=== PATIENT | female | born 1965 | race Caucasian/White ===

== ENCOUNTER 2017-01-14 03:33 | Emergency (ER) | payer OTHER ==
[~2017-01-14] VITALS: Ht 162.6 cm; Wt 96.3 kg
[2017-01-14 03:39] VITALS: BP 138/87
[2017-01-14 04:48] LABS: BASO # 0.1 10^3/uL (0.0-0.2); BASO % 0.5 % (0.0-1.0); EOS % 0.3 % (0.0-3.0); IMMATURE GRANULOCYTE % 0.5 % (0-0); LYMPH # 1.1 10^3/uL (1.5-4.5); LYMPH % 10.6 % (24.0-44.0); MEAN CORPUSCULAR HEMOGLOBIN 32.1 pg (27.0-33.0); MEAN CORPUSCULAR HGB CONC 35.7 g/dl (32.0-36.5); MONO # 0.4 10^3/uL (0.0-0.8); MONO % 4.1 % (0.0-5.0); PLATELET COUNT, AUTOMATED 290 10^3/uL (150-450); RED CELL DISTRIBUTION WIDTH 12.9 % (11.5-14.5); WHITE BLOOD COUNT 10.7 10^3/uL (4.0-10.0)
[2017-01-14 05:11] LABS: ALBUMIN 3.4 GM/DL (3.2-5.2); ALBUMIN/GLOBULIN RATIO 1.13 (1.00-1.93); ALKALINE PHOSPHATASE 118 U/L (45-117); ALT/SGPT 21 U/L (12-78); ANION GAP 5 MEQ/L (8-16); AST/SGOT 13 U/L (7-37); BILIRUBIN,DIRECT < 0.1 MG/DL (0.0-0.2); BILIRUBIN,TOTAL 0.3 MG/DL (0.2-1.0); BLOOD UREA NITROGEN 13 MG/DL (7-18); CALCIUM LEVEL 8.9 MG/DL (8.5-10.1); CARBON DIOXIDE LEVEL 28 MEQ/L (21-32); CHLORIDE LEVEL 110 MEQ/L (98-107); CREATININE FOR GFR 1.22 MG/DL (0.55-1.02); GLOMERULAR FILTRATION RATE 49.1 (>51); GLUCOSE, FASTING 103 MG/DL (70-105); POTASSIUM SERUM 4.6 MEQ/L (3.5-5.1); SODIUM LEVEL 143 MEQ/L (136-145); TOTAL PROTEIN 6.4 GM/DL (6.4-8.2)
[2017-01-14] MEDS ORDERED: ISOVUE-370 76% 100ML VIAL (Q9967) As Ordered ONE (05:24)
[2017-01-14] MEDS ORDERED: MORPHINE 2 MG/ML 1ML SYRINGE IV PRN (06:00)
[2017-01-14] MEDS ORDERED: ONDANSETRON 4MG/2ML VIAL (J2405) IV ONE (06:00)
[2017-01-14] MEDS ORDERED: DICYCLOMINE 10 MG CAP PO ONE (06:45)
--- NOTE | 2017-01-14 08:52 | REPUSA ---
CLINICAL HISTORY: Abdominal pain. TECHNIQUE: Multiple axial, sagittal and coronal CT images were obtained through the abdomen and pelvi s after administration of intravenous contrast material. COMMENTS: The liver is mildly enlarged with decreased attenuation without mass or defect. There is no intra or extrahepatic biliary ductal dilatation. The spleen is normal. The gallbladder is within normal limits . The pancreas is of normal contour and attenuation characteristics. There is no evidence of adrenal mass. Both kidneys demonstrate prompt and equal nephrograms. The kidneys are normal in size, shape and conf iguration. There is no evidence of renal or ureteral mass. No renal or ureteral calculi are identifie d. There is no hydroureter or hydronephrosis. No evidence for appendicitis. There is diffuse sigmoid and descending colon wall thickening. Diffuse thickening of the small bowel loops in the left upper quadrant No evidence for small or large bowel obstruction. There is no evidence of abdominal ascites or lymphadenopathy. There is no evidence of intrinsic or extrinsic bladder mass. Thickened bladder. There is no pelvic as cites or lymphadenopathy. 2.2 cm left ovarian cyst/follicle. Intrauterine device is seen. Images of the lung bases show no evidence of pleural or parenchymal mass. There are no pleural effusi ons. The bony structures are free of lytic or blastic lesions. Multilevel degenerative changes are seen in volving the thoracolumbar spine. Scattered calcifications are seen involving the aorta and major bran ches compatible with atherosclerosis. IMPRESSION: Enterocolitis. Cystitis. Left ovarian cyst/follicle. Intrauterine device is seen in good position. Thank you for your kind referral of this patient.
--- NOTE | 2017-01-14 12:44 | ECGEPIP ---
Stationary ECG Study [facility] - ED Test Date: 2017-01-14 Pat Name: TRANG BHATT Department: Room: - Gender: F Kitchen Stewardess: julius : 1965 Requested By: JUSTIN Irby Order Number: [id number] Reading MD: Linda Tello Measurements Intervals [place] Rate: 68 P: 29 SC: 189 QRS: -6 QRSD: 87 T: 3 QT: 427 QTc: 455 Interpretive Statements SINUS RHYTHM LOW QRS VOLTAGE IN PRECORDIAL LEADS POSSIBLE RIGHT VENTRICULAR CONDUCTION DELAY POSSIBLE INFERIOR MYOCARDIAL INFARCTION, PROBABLY OLD DECREASED RATE 12/27/15 Electronically Signed On 01-14-2017 12:44:14 EST by Linda Tello
== END 2017-01-14 06:59 | disposition home or self-care (01) ==
LOC: M ED 03:33 → EDBD 03:33 → M ED 06:59
DX: R10.30 Lower abdominal pain, unspecified (principal); N83.202 Unspecified ovarian cyst, left side; K21.9 Gastro-esophageal reflux disease without esophagitis; Z97.5 Presence of (intrauterine) contraceptive device
CPT/HCPCS: 74177; 80048; 80076; 81001; 82550; 82553; 83605; 83690; 85025; 87086; 93005; 93041; 96374; 96375; 99284; J2405; Q9967

== ENCOUNTER → 2017-07-16 | Outpatient (CLI) | payer OTHER | LOC: M WUC 13:36 | DX: S40.012A Contusion of left shoulder, initial encounter (principal); S60.212A Contusion of left wrist, initial encounter; X58.XXXA Exposure to other specified factors, initial encounter; Y92.89 Other specified places as the place of occurrence of the external cause; Y99.9 Unspecified external cause status; Y93.9 Activity, unspecified | CPT/HCPCS: 73030 ==

== ENCOUNTER 2019-08-02 14:45 | Observation (INO) | payer OTHER ==
[~2019-08-02] VITALS: Ht 162.6 cm; Wt 106.6 kg
[2019-08-02 15:12] LABS: BASO # 0.1 10^3/uL (0.0-0.2); BASO % 0.6 % (0.0-1.0); EOS # 0.2 10^3/uL (0.0-0.5); EOS % 1.5 % (0.0-3.0); HEMATOCRIT 39.7 % (36.0-47.0); HEMOGLOBIN 14.5 g/dl (12.0-15.5); LYMPH # 2.4 10^3/uL (1.5-5.0); LYMPH % 21.6 % (24.0-44.0); MEAN CORPUSCULAR HEMOGLOBIN 32.6 pg (27.0-33.0); MEAN CORPUSCULAR HGB CONC 36.5 g/dl (32.0-36.5); MEAN CORPUSCULAR VOLUME 89.2 fl (80.0-96.0); MONO # 0.7 10^3/uL (0.0-0.8); MONO % 6.5 % (0.0-5.0); NEUTROPHILS # 7.8 10^3/uL (1.5-8.5); NEUTROPHILS % 69.5 % (36.0-66.0); PLATELET COUNT, AUTOMATED 335 10^3/uL (150-450); RED BLOOD COUNT 4.45 10^6/uL (4.00-5.40); WHITE BLOOD COUNT 11.2 10^3/uL (4.0-10.0)
[2019-08-02] MEDS ORDERED: ASPIRIN 325 MG TAB PO ONE (15:15)
[2019-08-02] MEDS ORDERED: GI COCKTAIL 50ML BTL(HYOSCYAMINE/MAALOX/LIDOCAINE VISCOUS)(1:3:1) PO ONE (15:15)
[2019-08-02] MEDS ORDERED: ALBU8.5H INH (15:17)
[2019-08-02] MEDS ORDERED: TRAZ1TAB14 PO (15:17)
[2019-08-02] MEDS ORDERED: BUSP30TA PO (15:17)
[2019-08-02] MEDS ORDERED: ORPH100T PO (15:17)
[2019-08-02] MEDS ORDERED: FAMO40TA3 PO ×2 (15:17→19:37)
[2019-08-02] MEDS ORDERED: OMEP-221 PO (15:17)
[2019-08-02] MEDS ORDERED: MONT10TA4 PO (15:17)
[2019-08-02] MEDS ORDERED: TOPI100T9 PO (15:17)
[2019-08-02] MEDS ORDERED: DULO1CAP6 PO (15:17)
[2019-08-02] MEDS ORDERED: NAPR-885 PO (15:17)
[2019-08-02] MEDS ORDERED: LISI20TA20 PO (15:17)
[2019-08-02 15:26] LABS: INR 0.98; PROTHROMBIN TIME 12.7 SECONDS (11.8-14.0)
[2019-08-02 15:29] LABS: D-DIMER QUANT 1019.7 ng/ml (<500)
--- NOTE | 2019-08-02 15:46 | REP ---
CHEST, SINGLE VIEW: There is no evidence of acute infiltrate. No pleural effusion is seen. The heart is normal in size. The mediastinal silhouette is unremarkable. The visualized osseous structures are intact. IMPRESSION: No acute pulmonary disease. Electronically Signed by Pedro Mars MD 08/02/2019 05:06 P
[2019-08-02 15:51] LABS: ALBUMIN 4.3 GM/DL (3.2-5.2); ALT/SGPT 24 U/L (12-78); BILIRUBIN,DIRECT 0.1 MG/DL (0.0-0.2); BILIRUBIN,TOTAL 0.6 MG/DL (0.2-1.0); CPK CREATINE PHOSPHOKINASE 162 U/L (26-192); LIPASE 510 U/L (73-393); MB/CK RELATIVE INDEX 1.23 (< OR =4); TOTAL PROTEIN 7.4 GM/DL (6.4-8.2); TROPONIN I < 0.02 NG/ML (< 0.10)
[2019-08-02 16:12] LABS: BLOOD UREA NITROGEN 36 MG/DL (7-18); CALCIUM LEVEL 9.3 MG/DL (8.5-10.1); CARBON DIOXIDE LEVEL 26 MEQ/L (21-32); CHLORIDE LEVEL 105 MEQ/L (98-107); CREATININE FOR GFR 1.79 MG/DL (0.55-1.30); GLOMERULAR FILTRATION RATE 31.2 (>51); GLUCOSE, FASTING 85 MG/DL (70-100); POTASSIUM SERUM 3.7 MEQ/L (3.5-5.1); SODIUM LEVEL 138 MEQ/L (136-145)
--- NOTE | 2019-08-02 17:32 | REP ---
CT CHEST WITHOUT CONTRAST: HISTORY: Chest pain. Comparison chest CT study is from February 18, 2009. CT FINDINGS: The lung gaytan are clear. No infiltrate is seen. No mass or significant pulmonary nodule is appreciated. There is a zone of minimal linear fibrosis in the left lower lobe. This is unchanged actually from the 2009 prior study. There is no evidence of pleural or pericardial effusion. No hilar or mediastinal mass or adenopathy is observed. No adrenal lesion is seen. The visualized upper abdominal structures are unremarkable. No extrathoracic mass or adenopathy is seen. Bone window settings show no bony destructive lesion. IMPRESSION: No active cardiopulmonary disease. Electronically Signed by Mike Sargent MD 08/03/2019 09:11 A
--- NOTE | 2019-08-02 17:37 | REP ---
CT ABDOMEN AND PELVIS WITHOUT IV OR ORAL CONTRAST: HISTORY: Chest pain. Comparison CT study, January 14, 2017. CT FINDINGS: The liver and the spleen are normal in size, homogeneous in texture. No adrenal lesion is seen on either side. No abnormalities noted in the gallbladder or pancreas. There is a descending duodenal diverticulum. There is a granulomatous calcification in the omental fat in the right anterior abdomen, unchanged. No retroperitoneal mass or adenopathy is seen. The kidneys are morphologically intact. No hydronephrosis or intrarenal calculus is observed. No retroperitoneal mass or adenopathy is seen. A normal appendix is noted in the right lower quadrant. An IUD is seen in place in the uterus. No ovarian abnormality is seen. No free fluid is noted. Urinary bladder is unremarkable. No abdominal wall defect is seen. There are mild degenerative changes in the lumbar spine. No bony destructive lesion is seen. IMPRESSION: Normal appendix. IUD seen in place in the uterus. No acute abdominal or pelvic abnormality. No hydronephrosis or urinary tract calculus seen. Electronically Signed by Mike Sargent MD 08/03/2019 09:11 A
[2019-08-02] MEDS ORDERED: NS 1,000 ML IV ONE (18:00)
--- NOTE | 2019-08-02 18:43 | REPVR ---
PROCEDURE INFORMATION: Exam: US Duplex Lower Extremity Veins, Bilateral Exam date and time: 08/02/2019 6:39 PM Age: 54 years old Clinical indication: Other: Chest pain; Additional info: R/O dvt TECHNIQUE: Imaging protocol: Real-time duplex ultrasound of the extremities with 2-D donohue scale, color Doppler flow and spectral waveform analysis with image documentation. Complete exam focused on the bilateral lower extremity veins. COMPARISON: No relevant prior studies available. FINDINGS: Right deep veins: Unremarkable. The common femoral, femoral, proximal profunda femoral and popliteal veins are patent without thrombus. Normal Doppler waveforms. Normal compressibility and/or augmentation response. Right superficial veins: Saphenofemoral junction is patent without thrombus. Left deep veins: Unremarkable. The common femoral, femoral, proximal profunda femoral and popliteal veins are patent without thrombus. Normal Doppler waveforms. Normal compressibility and/or augmentation response. Left superficial veins: Saphenofemoral junction is patent without thrombus. Soft tissues: Unremarkable. IMPRESSION: No evidence of deep vein thrombosis. Electronically signed by: Stephen Luna On 08/02/2019 18:43:34 PM
[2019-08-02] MEDS ORDERED: HEPARIN DRIP 25,000 UNITS in IV 1 EA IV SCH ×2 (19:09→19:58)
[2019-08-02 19:29] LABS: PARTIAL THROMBOPLASTIN TIME 32.7 SECONDS (25.0-38.4)
[2019-08-02] MEDS ORDERED: ACETAMINOPHEN TAB 650MG DOSE (2X325MG) PO PRN (20:00)
[2019-08-02] MEDS ORDERED: HEPARIN SOD (PORCINE) 5000UNITS/ML VIAL (J1644 PER 1000UNITS) IV PRN (20:00)
[2019-08-02] MEDS ORDERED: MAALOX 30 ML SUSP *UDC PO PRN (20:00)
[2019-08-02] MEDS ORDERED: MOM 30ML SUSPENSION UDC PO PRN (20:00)
[2019-08-02] MEDS ORDERED: NITROGLYCERIN 0.3 MG SUBL TAB SL PRN (20:15)
[2019-08-02] MEDS ORDERED: ALBUTEROL 90 MCG/ACT 8GM HFA INHALER INH PRN (20:30)
[2019-08-02] MEDS ORDERED: NON-FORMULARY 1 EA EA PO SCH (20:30)
[2019-08-02] MEDS ORDERED: FAMOTIDINE 20 MG TAB PO PRN (20:30)
--- NOTE | 2019-08-02 20:36 | HPEPDOC ---
General Date of Admission August 02, 2019 at 14:46 Date of Service: August 02, 2019 Chief Complaint The patient is a 54-year-old female admitted with a reason for visit of Chest Pain D Dimer Elevated. Source: Patient Exam Limitations: No limitations Timing/Duration: Other (one hour) Severity: Moderate Associated Symptoms: Other (chest pain) History of Present Illness This is a 54 years old white female with past medical history of migraine headache, hypertension, cervical strain, osteoarthritis, while at [place] with orthopedic doctor where he gave her a gentle sharp in her both legs, while driving back to [place]. She had sudden onset of midsternal squeezing type chest pain associated with nausea not improve with any position change, not exacerbated by ambulation, nonradiating, the remainder for about one hour and this spontaneously resolved. , During interview. Patient is asymptomatic. No chest pain, nausea or shortness of breath, patient had extensive workup done in the emergency room including CT chest, venous Dopplers of both lower extremities and chest x-ray, which are essentially negative but unfortunately she also had a d-dimer performed, which was elevated to 1019 and a as patient had a multiple CAT scan done, they were unable to perform CTA of chest and hence patient has to wait for VQ scan in the morning. Patient has been started on heparin from the emergency room and we will called to admit patient to observation for chest pain, as well as to obtained VQ scan in a.m. Home Medications Scheduled Buspirone HCl (Buspirone HCl) 30 Mg Tablet, 30 MG PO BID, (Reported) Duloxetine Hcl (Duloxetine HCl) 60 Mg Capsule.dr, 60 MG PO DAILY, (Reported) Famotidine (Famotidine) 40 Mg Tablet, 40 MG PO QHS, (Reported) Lisinopril/Hydrochlorothiazide (Lisinopril-Hctz 20-25 mg Tab) 1 Each Tablet, 1 TAB PO DAILY, (Reported) Montelukast Sodium (Montelukast Sodium) 10 Mg Tablet, 10 MG PO QHS, (Reported) Naproxen (Naproxen) 500 Mg Tablet, 500 MG PO BID, (Reported) Omeprazole (Omeprazole) 40 Mg Capsule.dr, 40 MG PO DAILY, (Reported) Orphenadrine Citrate (Orphenadrine Citrate ER) 100 Mg Tablet.er, 100 MG PO QHS, (Reported) Topiramate (Topiramate) 100 Mg Tablet, 100 MG PO BID, (Reported) Trazodone HCl (Trazodone HCl) 150 Mg Tablet, 150 MG PO QHS, (Reported) Scheduled PRN Albuterol Sulfate (Albuterol Sulfate Hfa) 8.5 Gm Hfa.aer.ad, 2 PUFF INH QID PRN for SHORTNESS OF BREATH, (Reported) Famotidine (Famotidine) 40 Mg Tablet, 40 MG PO DAILY PRN for HEARTBURN, (Reported) Allergies Coded Allergies: No Known Allergies (Unverified , 08/02/19) Past Medical History Medical History Migraine headaches, hypertension, cervical strain, osteoarthritis both knees Surgical History Patient and colonoscopy, endoscopy and multiple gel shots in both knees Family History Family history reviewed. Father at age of 68 with cancer of unknown origin and mother at age of 67 with lung cancer Social History * Smoker: Denies Alcohol: Denies Drugs: denies A-FIB/CHADSVASC A-FIB History Current/History of A-Fib/PAF?: No Review of Systems Constitutional: Denies: Chills, Fever, Malaise, Night Sweats, Weakness, Fatigue, Weight Loss, Lethargy, Other Eyes: Denies: Pain, Vision change, Conjunctivae inflammation, Eyelid inflammation, Redness, Other ENT: Denies: Head Aches, Ear Pain, Dysphagia, Sinus Congestion, Post Nasal Drip, Sore Throat, Epistaxis, Other Symptoms Skin: Denies: Rash, Lesions, Jaundice, Bruising, Itching, Dry, Breakdown, Nail Changes, Other Cardiovascular: Reports: Chest Pain Gastrointestinal: Reports: Nausea Genitourinary: Denies: Dysuria, Frequency, Incontinence, Hematuria, Retention, Other Symptoms Endocrine: Denies: Polydipsia, Polyphagia, Polyuria, Heat Intolerance, Cold Intolerance, Other Endocrine Sx Musculoskeletal: Denies: Neck Pain, Back Pain, Shoulder Pain, Arm Pain, Hand Pain, Leg Pain, Foot Pain, Joint Pain, Muscle Pain, Spasms, Other Symptoms Neurological: Denies: Weakness, Numbness, Incoordination, Change in speech, Confusion, Seizures, Other Symptoms Psych: Denies: Mood Normal, Anxiety, Depression, Memory Issues, Thoughts of Self Harm, Anger, Thoughts of Harming Other, Other Psych Physical Examination General Exam: Positive: Alert, Cooperative Eye Exam: Positive: PERRLA, Conjunctiva & lids normal ENT Exam: Positive: Atraumatic, Mucous membr. moist/pink Neck Exam: Positive: Supple Chest Exam: Positive: Clear to auscultation, Normal air movement Heart Exam: Positive: Rate Normal, Normal S1, Normal S2 Abdomen Exam: Positive: Normal bowel sounds Extremity Exam: Positive: Normal pulses Skin Exam: Positive: Nl turgor and temperature Neuro Exam: Positive: Strength at 5/5 X4 ext, Cranial Nerves 3-12 NL Psych Exam: Positive: Mood NL, Oriented x 3 Vital Signs Vital Signs Date Time Temp Pulse Resp B/P (MAP) Pulse Ox O2 Delivery O2 Flow Rate FiO2 08/02/19 18:30 80 18 96 Room Air 08/02/19 16:15 118/74 (89) 08/02/19 14:46 98.0 Laboratory Data Labs 24H Laboratory Tests 2 08/02/19 15:01: Immature Granulocyte % (Auto) 0.3, Neutrophils (%) (Auto) 69.5H, Lymphocytes (%) (Auto) 21.6L, Monocytes (%) (Auto) 6.5H, Eosinophils (%) (Auto) 1.5, Basophils (%) (Auto) 0.6, Neutrophils # (Auto) 7.8, Lymphocytes # (Auto) 2.4, Monocytes # (Auto) 0.7, Eosinophils # (Auto) 0.2, Basophils # (Auto) 0.1, Nucleated Red Blood Cells % (auto) 0.0, Prothrombin Time 12.7, Prothromb Time International Ratio 0.98, Activated Partial Thromboplast Time 32.7, D-Dimer, Quantitative 1019.70H, Anion Gap 7L, Glomerular Filtration Rate 31.2L, Calcium Level 9.3, Total Bilirubin 0.6, Direct Bilirubin 0.1, Aspartate Amino Transf (AST/SGOT) 22, Alanine Aminotransferase (ALT/SGPT) 24, Alkaline Phosphatase 100, Total Creatine Kinase 162, Creatine Kinase MB 2.0, Creatine Kinase MB Relative Index 1.23, Troponin I < 0.02, Total Protein 7.4, Albumin 4.3, Albumin/Globulin Ratio 1.4, Lipase 510H 08/02/19 15:06: POC Glucose (Misc Panel) 88, POC Sodium (Misc Panel) 140, POC Potassium (Misc Panel) 3.8, POC Chloride (Misc Panel) 103, POC Total CO2 (Misc Panel) 24.0, POC Blood Urea Nitrogen (Misc Panel 34H, POC Ionized Calcium (Misc Panel) 4.9, POC Creatinine (Misc Panel) 1.9H, POC Hematocrit (Misc Panel) 41.0 CBC/BMP Laboratory Tests 08/02/19 15:01 Problems (1) Chest pain Status: Acute Problem Text: 54 years old white female with past medical history of hypertension but no history of cardiac disease, gallops sudden onset of chest pain today. Pain was a midsternal, nonradiating squeezing type lasted for 1 hour with no other contributing factor except association with nausea EKG shows normal sinus rhythm, st-t changes Venous Doppler bilateral lower extremity, no DVT CT of the abdomen and place shows IUD in place, otherwise normal CT of the chest shows no pulmonary pathology Chest x-ray is within normal range First troponin is less than 0.02 D-dimer is 1019 Lipase is 510 CBC, CMP within normal range with creatinine of 1.79 Admit patient to PCU with telemetry Continue heparin infusion as was started for elevated d-dimer is unable to ob tained. CTA of chest Serial troponins to rule out coronary injury or ischemia Echocardiogram Out of bed as tolerated Diet 2 g sodium DVT prophylaxis, patient is already on heparin drip (2) D-dimer, elevated Status: Acute Problem Text: Elevated d-dimer [id number] Patient has no indication for pulmonary embolism. If she does not have a tachycardia, tachypnea, hypoxia Elevated d-dimer, most likely secondary to chronic inflammation secondary to osteoarthritis Since patient has a multiple CT done today as has the CTA of the chest could not be done to avoid risking kidneys with multiple contrast mediums Patient is scheduled for VQ scan in a.m. Patient was started on heparin drip in ED and will continue the same and it can be DC'd once the VQ scan is low probability (3) HTN (hypertension) Status: Chronic Problem Text: Continue home meds Plan / VTE VTE Prophylaxis Ordered?: Yes MIMI PINEDA MD August 02, 2019 20:36
[2019-08-02] MEDS ORDERED: FAMOTIDINE 20 MG TAB PO SCH (21:00)
[2019-08-02] MEDS ORDERED: traZODone 50 MG TAB PO SCH (21:00)
[2019-08-02] MEDS ORDERED: MONTELUKAST 10 MG TAB PO SCH (21:00)
--- NOTE | 2019-08-02 21:11 | ECGEPIP ---
[facility] - ED Test Date: 2019-08-02 Pat Name: TRANG BHATT Department: Room: - Gender: Female Business Instructor: : 1965 Requested By: MARGARETH David Order Number: [id number] Reading MD: Baldo Ortega Measurements Intervals [place] Rate: 85 P: 36 TN: 175 QRS: -6 QRSD: 90 T: -9 QT: 382 QTc: 455 Interpretive Statements SINUS RHYTHM POSSIBLE RIGHT VENTRICULAR CONDUCTION DELAY POSSIBLE PRIOR INFERIOR INFARCT NONSPECIFIC T-WAVE ABNORMALITY SIMILAR TO 01/14/17 Electronically Signed on 08-02-2019 21:11:15 EDT by Baldo Ortega
--- NOTE | 2019-08-02 21:18 | ECGEPIP ---
[facility] - ED Test Date: 2019-08-02 Pat Name: TRANG BHATT Department: Room: - Gender: Female Staff Services Manager: : 1965 Requested By: BRANDI OSCAR Order Number: [id number] Reading MD: Baldo Ortega Measurements Intervals [place] Rate: 71 P: 147 MD: 199 QRS: -19 QRSD: 86 T: -28 QT: 406 QTc: 442 Interpretive Statements SINUS RHYTHM LOW QRS VOLTAGE IN PRECORDIAL LEADS INCOMPLETE RIGHT BUNDLE BRANCH BLOCK POSSIBLE PRIOR INFERIOR INFARCT NONSPECIFIC T-WAVE ABNORMALITY SIMILAR TO PRIOR ON SAME DATE Electronically Signed on 08-02-2019 21:18:23 EDT by Baldo Ortega
[2019-08-02 21:56] LABS: CK-MB VALUE MASS 1.4 NG/ML (<3.6); CPK CREATINE PHOSPHOKINASE 122 U/L (26-192); MB/CK RELATIVE INDEX 1.15 (< OR =4); TROPONIN I < 0.02 NG/ML (< 0.10)
[2019-08-02 22:45] VITALS: BP 116/64
[2019-08-02] MEDS: busPIRone 10 MG TAB PO SCH (22:49)
[2019-08-02] MEDS: TOPIRAMATE (TopAMAX) 100 MG TAB PO SCH (22:49)
[2019-08-02] MEDS: NAPROXEN 250 MG TAB PO SCH (22:59)
[2019-08-03 02:14] LABS: INR 1.13; PARTIAL THROMBOPLASTIN TIME 63.9 SECONDS (25.0-38.4); PROTHROMBIN TIME 14.2 SECONDS (11.8-14.0)
[2019-08-03 04:19] LABS: HEMATOCRIT 36.3 % (36.0-47.0); HEMOGLOBIN 12.8 g/dl (12.0-15.5); MEAN CORPUSCULAR HEMOGLOBIN 31.7 pg (27.0-33.0); MEAN CORPUSCULAR HGB CONC 35.3 g/dl (32.0-36.5); MEAN CORPUSCULAR VOLUME 89.9 fl (80.0-96.0); PLATELET COUNT, AUTOMATED 267 10^3/uL (150-450); RED BLOOD COUNT 4.04 10^6/uL (4.00-5.40); WHITE BLOOD COUNT 7.2 10^3/uL (4.0-10.0)
[2019-08-03 06:00] VITALS: BP 143/55
[2019-08-03 08:16] LABS: INR 1.13; PROTHROMBIN TIME 14.2 SECONDS (11.8-14.0)
[2019-08-03] MEDS: busPIRone 10 MG TAB PO SCH (08:51)
[2019-08-03] MEDS: NAPROXEN 250 MG TAB PO SCH (08:52)
[2019-08-03] MEDS: TOPIRAMATE (TopAMAX) 100 MG TAB PO SCH (08:57)
[2019-08-03 09:00] VITALS: BP 106/60
[2019-08-03] MEDS ORDERED: DULoxetine 30 MG CAP (CYMBALTA) PO SCH (09:00)
[2019-08-03] MEDS ORDERED: hydroCHLOROthiazide 25 MG TAB PO SCH (09:00)
[2019-08-03] MEDS ORDERED: lisinopriL 20 MG TAB PO SCH (09:00)
[2019-08-03] MEDS ORDERED: OMEPRAZOLE 20 MG CAP PO SCH (09:00)
[2019-08-03 11:00] LABS: BLOOD UREA NITROGEN 29 MG/DL (7-18); CARBON DIOXIDE LEVEL 25 mmol/L (20-29); CHLORIDE LEVEL 110 MEQ/L (98-107); CREATININE FOR GFR 1.63 MG/DL (0.55-1.30); GLOMERULAR FILTRATION RATE 34.7 (>51); GLUCOSE, FASTING 88 MG/DL (70-100); POTASSIUM SERUM 3.5 MEQ/L (3.5-5.1); SODIUM LEVEL 143 MEQ/L (136-145)
[2019-08-03 11:01] LABS: ALBUMIN 3.4 GM/DL (3.2-5.2); ALT/SGPT 17 IU/L (0-32); BILIRUBIN,TOTAL 0.5 MG/DL (0.2-1.0); CALCIUM LEVEL 8.6 MG/DL (8.5-10.1); CK-MB VALUE MASS 1.6 NG/ML (<3.6); CPK CREATINE PHOSPHOKINASE 111 U/L (26-192); MAGNESIUM LEVEL 2.5 MG/DL (1.8-2.4); MB/CK RELATIVE INDEX 1.44 (< OR =4); TOTAL PROTEIN 6.3 GM/DL (6.4-8.2); TROPONIN I < 0.02 NG/ML (< 0.10)
[2019-08-03 14:00] VITALS: BP 109/71
--- NOTE | 2019-08-03 14:31 | ECHO ---
DATE OF STUDY: 08/03/2019 REFERRING PHYSICIAN: Dr. Patricio Talley INDICATION: Chest pain unspecified. HEIGHT: 163 cm. WEIGHT: 105 kg. 2-D MEASUREMENTS: Aortic root: 2.9 cm Left atrium: 3.5 cm Ventricular septum: 0.90 cm Posterior wall: 0.99cm Left ventricle diastole: 4.7 cm Aortic root: 2.4 cm Aortic annulus: 2.1 cm Inferior vena cava: 1.6 cm (more than 50% respiratory variation) DOPPLER MEASUREMENTS: No aortic stenosis No aortic regurgitation Aortic valve velocity: 103 cm/sec LVOT velocity: 76.4 cm/sec No mitral stenosis No mitral regurgitation Mitral E velocity: 65.6 cm/sec Mitral A velocity: 63.8 cm/sec Mitral deceleration time: 222 ms Trace tricuspid regurgitation No pulmonic regurgitation Pulmonary acceleration time: 127 ms MITRAL ANNULAR TISSUE DOPPLER: E prime septal: 13.7 cm/sec E prime lateral: 10.4 cm/sec DESCRIPTION: The rhythm was sinus. This was a moderately technically difficult echocardiogram. This was a 2-D, M-mode, color flow Doppler and pulse wave Doppler examination and included mitral annular tissue Doppler. CONCLUSIONS: 1. Left pleural effusion. 2. Very small pericardial effusion. No diastolic chamber collapse. 3. Normal left ventricle internal dimensions and wall thickness. Normal regional LV wall motion and wall thickening. Normal LV systolic function. LVEF 65% by visual estimate. Normal LV diastolic function. 4. Moderately technically difficult echocardiogram. 5. Otherwise normal appearing echocardiogram Doppler findings.
--- NOTE | 2019-08-03 15:01 | REP ---
V/Q SCAN: Following the intravenous administration of 5.5 millicuries technetium 99m tagged MAA and the inhalation of 1.0 millicuries technetium 99m DTPA aerosol, multiple images of the lungs are obtained in various projections. Small subsegmental matching ventilation perfusion defects are seen in the lung bases. There is a linear artifactual matching defect projecting over the right lung. There are no areas of V/Q mismatch. IMPRESSION: Low probability of pulmonary embolism. Electronically Signed by Pedro Mars MD 08/03/2019 03:57 P
--- NOTE | 2019-08-03 17:18 | DS.PDOC ---
Discharge Summary General Date of Admission August 02, 2019 at 14:46 Date of Discharge 08/03/19 Discharge Summary PROCEDURES PERFORMED DURING STAY:V/Q scan ADMITTING DIAGNOSES: 1. suspected PE DISCHARGE DIAGNOSES: 1. ruled out PE COMPLICATIONS/CHIEF COMPLAINT: Chest Pain D Dimer Elevated. HOSPITAL COURSE: 54 yo female admitted for concerns for pulmonary embolism. Originally presented for chest pain, with elevated D-Dimer. Patient denies any family history of clots, denied shortness of breath. Chest pain resolved spontaneously. Denied any history of immobilization or malignancy. Patient states she has very active lifestyle. Wells criteria 3 based on one presenting symptom. Unfortunately creatinine slightly elevated, preventing CTA. VQ scan showed low probability, LE dopplers negative for DVT. Echo showed no RV strain. ECG within normal limits. Discussed with patient that PE was very unlikely, but not definitively ruled out. Patient was agreeable not to anti-coagulate, and follow up as outpatient with her PCP. Instructed to be vigilant for the rest of the day regarding bleeding, and to return to ER if any symptoms occur including SOB, SOLIS, chest pain, palpitations, tachycardia, dizziness. DISCHARGE MEDICATIONS: Please see below. ALLERGIES: Please see below. PHYSICAL EXAMINATION ON DISCHARGE: VITAL SIGNS: Please see below. GENERAL: NAD, lying comfortably in bed HEENT: NC/AT, EOMI Lungs: CTA B/L HearT: +S1S2, RRR Abd: soft, NT, +BS Ext: no edema LABORATORY DATA: Please see below. ACTIVITY: [As tolerated]. DIET: regular DISPOSITION: 01 Home, Self-Care. DISCHARGE INSTRUCTIONS: 1. Follow up PCP in 3-5 days DISCHARGE CONDITION: [Stable]. TIME SPENT ON DISCHARGE: 35 minutes. Vital Signs/I&Os Vital Signs Date Time Temp Pulse Resp B/P (MAP) Pulse Ox O2 Delivery O2 Flow Rate FiO2 08/03/19 14:00 97.4 73 19 109/71 (84) 97 Room Air I&O- Last 24 Hours up to 6 AM 08/03/19 06:00 Intake Total 1030 ml Output Total 1250 ml Balance -220 ml Laboratory Data Labs 24H Laboratory Tests 2 08/02/19 21:14: Total Creatine Kinase 122, Creatine Kinase MB 1.4, Creatine Kinase MB Relative Index 1.15, Troponin I < 0.02 08/03/19 01:36: Prothrombin Time 14.2H, Prothromb Time International Ratio 1.13, Activated Partial Thromboplast Time 63.9H 08/03/19 04:02: Total Creatine Kinase 111, Creatine Kinase MB 1.6, Creatine Kinase MB Relative Index 1.44, Troponin I < 0.02, Nucleated Red Blood Cells % (auto) 0.0, Anion Gap 8, Glomerular Filtration Rate 34.7L, Calcium Level 8.6, Magnesium Level 2.5H, Total Bilirubin 0.5, Aspartate Amino Transf (AST/SGOT) 24, Alanine Aminotransferase (ALT/SGPT) 17, Alkaline Phosphatase 80, Total Protein 6.3L, Albumin 3.4#, Albumin/Globulin Ratio 1.2 08/03/19 07:48: Prothrombin Time 14.2H, Prothromb Time International Ratio 1.13, Activated Partial Thromboplast Time 211.0*H CBC/BMP Laboratory Tests 08/03/19 04:02 Discharge Medications Scheduled Buspirone HCl (Buspirone HCl) 30 Mg Tablet, 30 MG PO BID, (Reported) Duloxetine Hcl (Duloxetine HCl) 60 Mg Capsule.dr, 60 MG PO DAILY, (Reported) Famotidine (Famotidine) 40 Mg Tablet, 40 MG PO QHS, (Reported) Lisinopril/Hydrochlorothiazide (Lisinopril-Hctz 20-25 mg Tab) 1 Each Tablet, 1 TAB PO DAILY, (Reported) Montelukast Sodium (Montelukast Sodium) 10 Mg Tablet, 10 MG PO QHS, (Reported) Naproxen (Naproxen) 500 Mg Tablet, 500 MG PO BID, (Reported) Omeprazole (Omeprazole) 40 Mg Capsule.dr, 40 MG PO DAILY, (Reported) Orphenadrine Citrate (Orphenadrine Citrate ER) 100 Mg Tablet.er, 100 MG PO QHS, (Reported) Topiramate (Topiramate) 100 Mg Tablet, 100 MG PO BID, (Reported) Trazodone HCl (Trazodone HCl) 150 Mg Tablet, 150 MG PO QHS, (Reported) Scheduled PRN Albuterol Sulfate (Albuterol Sulfate Hfa) 8.5 Gm Hfa.aer.ad, 2 PUFF INH QID PRN for SHORTNESS OF BREATH, (Reported) Famotidine (Famotidine) 40 Mg Tablet, 40 MG PO DAILY PRN for HEARTBURN, (Reported) Allergies Coded Allergies: No Known Allergies (Unverified , 08/02/19) MEHNAZ RODRIGUEZ MD August 03, 2019 17:18
--- NOTE | 2019-08-03 22:15 | ECGEPIP ---
Test Date: 2019-08-03 Pat Name: TRANG BHATT Department: Room: [place] [address] Gender: Female Dump Operator: : 1965 Requested By: MARTIN OLSEN D.O. Order Number: [id number] Reading MD: Chano Foreman Measurements Intervals [place] Rate: 63 P: 22 AR: 204 QRS: 66 QRSD: 87 T: 61 QT: 443 QTc: 456 Interpretive Statements SINUS RHYTHM LOW QRS VOLTAGE IN PRECORDIAL LEADS Electronically Signed on 08-03-2019 22:14:55 EDT by Chano Foreman
== END 2019-08-03 16:56 | disposition home or self-care (01) ==
LOC: M ED 14:45 → M ED INP 14:46 → ENRESERV 21:02 → M MSPAV 22:30
PROVIDERS: ADMIT Internal Medicine; ATTEND Internal Medicine
DX: R07.89 Other chest pain (principal); R79.1 Abnormal coagulation profile; I10 Essential (primary) hypertension; G43.909 Migraine, unspecified, not intractable, without status migrainosus; M17.0 Bilateral primary osteoarthritis of knee; Z79.899 Other long term (current) drug therapy
CPT/HCPCS: 36415; 71045; 71250; 74176; 78582; 80047; 80048; 80053; 80076; 82550; 82553; 83690; 83735; 84484; 85025; 85027; 85379; 85610; 85730; 93005; 93041; 93306; 93970; 94760; 96361; 96365; 96366; 99285; A9540; A9567; J1644

== ENCOUNTER → 2019-08-07 | Outpatient (REF) | payer OTHER ==
[~2019-08-07] MED LIST: ALBU8.5H INH; BUSP30TA PO; DULO1CAP6 PO; FAMO40TA3 PO; LISI20TA20 PO; MONT10TA4 PO; NAPR-885 PO; OMEP-221 PO; ORPH100T PO; TOPI100T9 PO; TRAZ1TAB14 PO
== END ==
LOC: M LAB REF 10:24
PROVIDERS: ATTEND Nurse Practitioner Family
DX: R07.9 Chest pain, unspecified (principal)

== ENCOUNTER → 2019-08-21 | Outpatient (REF) | payer OTHER ==
[~2019-08-21] MED LIST changes: +MONT10TA10 PO; -MONT10TA4 PO
== END ==
LOC: M LAB REF 11:24
PROVIDERS: ATTEND Nurse Practitioner Family
DX: R07.9 Chest pain, unspecified (principal)

== ENCOUNTER → 2020-02-06 | Outpatient (REF) | payer OTHER ==
[~2020-02-06] MED LIST changes: -MONT10TA10 PO; +MONT5TAB2 PO
== END ==
LOC: M LAB REF 13:41
PROVIDERS: ATTEND Radiology Diagnostic Radiology
DX: N63.0 Unspecified lump in unspecified breast (principal)

== ENCOUNTER → 2020-05-13 | Outpatient (CLI) | payer OTHER ==
[~2020-05-13] MED LIST changes: +MONT10TA10 PO; -MONT5TAB2 PO
--- NOTE | 2020-05-13 11:10 | REP ---
INDICATION: CKD III COMPARISON: None TECHNIQUE: Real time donohue scale ultrasound examination using curved array transducer. FINDINGS: Kidneys are normal in contour, size, echogenicity, and reniform shape. No hydronephrosis, nephrolithiasis, cystic or renal mass lesion. No perinephric fluid collection. Bladder is unremarkable. Right kidney measures 9.4 x 5.2 x 3.8 cm. Left kidney measures 9.3 x 4.1 x 4.8 cm. IMPRESSION: 1. Normal renal ultrasound. <Electronically signed by Bubba Oshea > 05/13/20 110
== END ==
LOC: M RAD 10:46
PROVIDERS: ATTEND Internal Medicine Nephrology
DX: N18.32 Chronic kidney disease, stage 3b (principal)

== ENCOUNTER 2020-12-17 17:02 | Emergency (ER) | payer OTHER ==
[~2020-12-17] VITALS: Ht 162.6 cm; Wt 113.0 kg
[2020-12-17] MEDS ORDERED: AMLO1TAB25 (17:13)
[2020-12-17] MEDS ORDERED: METO1TAB32 (17:13)
[2020-12-17] MEDS ORDERED: LEXA1TAB2 (17:13)
[2020-12-18 07:42] LABS: BASO # 0.1 10^3/uL (0.0-0.2); BASO % 0.8 % (0.0-1.0); EOS # 0.1 10^3/uL (0.0-0.5); HEMATOCRIT 41.2 % (36.0-47.0); HEMOGLOBIN 14.7 g/dl (12.0-15.5); LYMPH # 1.7 10^3/uL (1.5-5.0); LYMPH % 17.7 % (24.0-44.0); MEAN CORPUSCULAR HEMOGLOBIN 31.1 pg (27.0-33.0); MEAN CORPUSCULAR HGB CONC 35.7 g/dl (32.0-36.5); MEAN CORPUSCULAR VOLUME 87.1 fl (80.0-96.0); MONO # 0.6 10^3/uL (0.0-0.8); MONO % 6.7 % (2.0-8.0); NEUTROPHILS % 73.3 % (36.0-66.0); PLATELET COUNT, AUTOMATED 302 10^3/uL (150-450); RED BLOOD COUNT 4.73 10^6/uL (4.00-5.40); WHITE BLOOD COUNT 9.6 10^3/uL (4.0-10.0)
[2020-12-18 08:15] LABS: ALBUMIN 3.6 GM/DL (3.2-5.2); BILIRUBIN,DIRECT 0.1 MG/DL (0.0-0.2); BILIRUBIN,TOTAL 0.6 MG/DL (0.2-1.0); CREATININE FOR GFR 1.67 MG/DL (0.55-1.30); GLOMERULAR FILTRATION RATE 33.7 (>51); POTASSIUM SERUM 3.8 MEQ/L (3.5-5.1); TOTAL PROTEIN 6.9 GM/DL (6.4-8.2)
--- NOTE | 2020-12-18 08:25 | REPVR ---
PROCEDURE INFORMATION: Exam: MR Lumbar Spine Without Contrast Exam date and time: 12/18/2020 8:06 AM Age: 55 years old Clinical indication: Low back pain; Additional info: Urinary incontinence, low back pain, R/O cauda equina TECHNIQUE: Imaging protocol: Multiplanar magnetic resonance images of the lumbar spine without intravenous contrast. COMPARISON: CT ABD PELVIS W/O CONTRAST 12/18/2020 7:01 AM FINDINGS: Vertebrae: Vertebral body heights normal. Borderline anterolisthesis of L4 on L5. There is diffuse disc desiccation with multilevel disc height loss greatest at T11-T12, L4-L5, and L5-S1. There are vacuum discs T11-T12 and L4-L5. There are small marginal osteophytes greater anteriorly but also small osteophytes posteriorly L4-L5 and L5-S1. There are endplate degenerative marrow changes greatest at L4-L5 L5-S1. There is L4 vertebral hemangioma. There are no suspicious bony lesions. Spinal cord: Conus terminates at L1 and appears normal in signal intensity without intrinsic or extrinsic lesion. T12-L1: Mild disc bulge and facet degenerative change. There is no evidence of spinal stenosis or neural foraminal narrowing. L1-L2: There is mild disc bulge. There is mild thickening of ligamentum flavum and facet degeneration. There is no significant spinal stenosis. There is no significant neural foraminal narrowing. L2-L3: There is gtwn-dj-hzhoikuh disc bulge. There is qfpr-sv-bahsxeoo thickening of ligamentum flavum and facet degeneration. There is mild spinal stenosis with mild anterior-posterior thecal sac narrowing. There is no significant neural foraminal narrowing. L3-L4: There is ntep-go-mfzbhzth disc bulge. There is ojlk-dk-nzrhjpqh thickening of ligamentum flavum and moderate facet degeneration. There is borderline spinal stenosis. There is mild right and no significant left neural foraminal narrowing. L4-L5: There is moderate disc bulge. There is moderate thickening of ligamentum flavum and facet degeneration. There is mild spinal stenosis and lateral recesses narrowing. There is mild to moderate right and mild left neural foraminal narrowing. L5-S1: There is moderate disc bulge. There is yqln-ml-aweiodfz facet degeneration. There is no significant spinal stenosis. There is mild to moderate right and mild left neural foraminal narrowing. Soft tissues: Unremarkable. IMPRESSION: Degenerative changes as detailed. There are not significant degrees of spinal stenosis. There is neural foraminal narrowing as described but not of levels appear to show compression of the exiting nerve roots. Electronically signed by: Sunshine Minaya On 12/18/2020 08:24:29 AM
--- NOTE | 2020-12-18 08:33 | REPVR ---
PROCEDURE INFORMATION: Exam: CT Abdomen And Pelvis Without Contrast Exam date and time: 12/18/2020 6:56 AM Age: 55 years old Clinical indication: Other: Dysuria; Additional info: Dysuria, urgency, L flank pain, incontinence TECHNIQUE: Imaging protocol: Computed tomography of the abdomen and pelvis without contrast. Radiation optimization: All CT scans at this facility use at least one of these dose optimization techniques: automated exposure control; mA and/or kV adjustment per patient size (includes targeted exams where dose is matched to clinical indication); or iterative reconstruction. COMPARISON: CT ABD PELVIS W/O CONTRAST 08/02/2019 4:30 PM FINDINGS: Tubes, catheters and devices: Intrauterine device in place. There is stable small low-density of approximately 2.4 cm consistent with cyst in left ovary. Right ovary appears unremarkable. Lungs: There is minimal linear atelectasis or scarring in inferior lingula and middle lobe Liver: Poorly defined 5 mm low-density right lobe liver is not definitively characterize. Gallbladder and bile ducts: No calcified stones. No ductal dilation. Pancreas: Unremarkable as visualized. No ductal dilation. Spleen: Unremarkable as visualized. No splenomegaly. Adrenal glands: Normal. No mass. Kidneys and ureters: No renal stones. No hydronephrosis. Stomach and bowel: There is a persistent small air collection adjacent to the head of pancreas which appears to project from the duodenum C-loop and is likely a stable small diverticulum. Very minimal diverticulosis without acute diverticulitis. Appendix: No evidence of appendicitis. Intraperitoneal space: No free air. No significant fluid collection. Vasculature: No abdominal aortic aneurysm. Lymph nodes: No enlarged lymph nodes. Urinary bladder: No visible bladder stones. Urinary bladder is nondistended. Reproductive: See "Tubes, catheters and devices" finding. Bones/joints: . There are mild degenerative changes in hips. Spinal findings have been is described on today MRI. Soft tissues: Unremarkable. IMPRESSION: No significant acute finding by CT. Consider correlation with urinalysis. Electronically signed by: Sunshine Minaya On 12/18/2020 08:33:26 AM
[2020-12-18 09:08] VITALS: BP 135/82
== END 2020-12-18 09:10 | disposition home or self-care (01) ==
LOC: M ED 17:02
DX: R30.0 Dysuria (principal); N39.41 Urge incontinence; M51.9 Unspecified thoracic, thoracolumbar and lumbosacral intervertebral disc disorder; I12.9 Hypertensive chronic kidney disease with stage 1 through stage 4 chronic kidney disease, or unspecified chronic kidney disease; N18.9 Chronic kidney disease, unspecified; F33.9 Major depressive disorder, recurrent, unspecified; F41.9 Anxiety disorder, unspecified; F43.10 Post-traumatic stress disorder, unspecified; K21.9 Gastro-esophageal reflux disease without esophagitis; Z79.899 Other long term (current) drug therapy

== ENCOUNTER → 2020-12-25 | Outpatient (REF) | payer OTHER ==
[~2020-12-25] MED LIST changes: +AMLO1TAB25; +LEXA1TAB2; +METO1TAB32
[2020-12-25 18:10] LABS: BACTERIA, URINE AUTO NEGATIVE (NEGATIVE); MUCUS, URINE SMALL (NEGATIVE); RBC, URINE AUTO 0 /HPF (0-3); SQUAMOUS EPITHELIAL CELL UR AU 4 /HPF (0-6); WBC, URINE AUTO 1 /HPF (0-3)
== END ==
LOC: M LAB REF 16:47
PROVIDERS: ATTEND Physician Assistant Medical
DX: N39.0 Urinary tract infection, site not specified (principal)

== ENCOUNTER → 2021-02-06 | Outpatient (REF) | payer OTHER ==
[2021-02-06 17:47] LABS: BACTERIA, URINE AUTO NEGATIVE (NEGATIVE); MUCUS, URINE SMALL (NEGATIVE); RBC, URINE AUTO 0 /HPF (0-3); SQUAMOUS EPITHELIAL CELL UR AU 2 /HPF (0-6); WBC, URINE AUTO 1 /HPF (0-3)
== END ==
LOC: M SMT 16:57
PROVIDERS: ATTEND Specialist
DX: N30.90 Cystitis, unspecified without hematuria (principal)

== ENCOUNTER → 2021-02-18 | Outpatient (CLI) | payer OTHER ==
--- NOTE | 2021-02-18 14:02 | REP ---
INDICATION: CYSTITIS COMPARISON: None. TECHNIQUE: Transabdominal pelvic ultrasound followed by transvaginal examination for better evaluation of the endometrium and adnexa with color Doppler evaluation of the ovaries. FINDINGS: Bladder is collapsed. Heterogeneous retroflexed uterus measures 5.8 x 2.5 x 3.7 cm. The endometrial complex measures 4.1 mm thickness. IUD identified in central satisfactory position. Right ovary is not visualized. Left ovary measures 3.3 x 2.8 x 2.9 cm (RI 0.65) and includes 2.3 x 2.0 x 2.0 cm cyst. IMPRESSION: 2.3 cm cyst in the left ovary is nonspecific. <Electronically signed by Bubba Oshea > 02/18/21 [id number]
--- NOTE | 2021-02-18 14:03 | REP ---
INDICATION: CYSTITIS COMPARISON: 05/13/2020 TECHNIQUE: Real time donohue scale ultrasound examination using curved array transducer. FINDINGS: Bilateral kidneys are normal in contour, size, echogenicity, and reniform shape with increased central sinus fat suggesting age-related change. No hydronephrosis, nephrolithiasis, cystic or renal mass lesion. No perinephric fluid collection. Right kidney measures 9.4 x 4.2 x 4.3 cm. Left kidney measures 10.2 x 4.9 x 5.4 cm. Bladder is grossly normal. IMPRESSION: 1. Normal renal ultrasound. <Electronically signed by Bubba Oshea > 02/18/21 [id number]
== END ==
LOC: M RAD 13:12
PROVIDERS: ATTEND Specialist
DX: Z87.448 Personal history of other diseases of urinary system (principal)

== ENCOUNTER → 2021-05-06 | Outpatient (CLI) | payer OTHER ==
[~2021-05-06] MED LIST changes: +GASTROGRAFIN SOLUTION 30ML (Q9963) ONE; -LISI20TA20 PO; +LISI20TA37 PO; -MONT10TA10 PO; +MONT10TA97 PO; -OMEP-221 PO; +OMEP40CA5 PO
== END ==
LOC: M PLAIMG 08:50
PROVIDERS: ATTEND Physician Assistant Surgical
DX: R10.84 Generalized abdominal pain (principal); K59.00 Constipation, unspecified
CPT/HCPCS: 74176; Q9963

== ENCOUNTER → 2021-06-01 | Outpatient (CLI) | payer OTHER ==
[~2021-06-01] MED LIST changes: -GASTROGRAFIN SOLUTION 30ML (Q9963) ONE
[2021-06-01 10:23] LABS: HEMATOCRIT 44.5 % (36.0-47.0); HEMOGLOBIN 15.5 g/dl (12.0-15.5); MEAN CORPUSCULAR HEMOGLOBIN 29.5 pg (27.0-33.0); MEAN CORPUSCULAR HGB CONC 34.8 g/dl (32.0-36.5); MEAN CORPUSCULAR VOLUME 84.6 fl (80.0-96.0); PLATELET COUNT, AUTOMATED 293 10^3/uL (150-450); RED BLOOD COUNT 5.26 10^6/uL (4.00-5.40); WHITE BLOOD COUNT 8.5 10^3/uL (4.0-10.0)
[2021-06-01 10:46] LABS: CALCIUM LEVEL 9.3 MG/DL (8.5-10.1); CREATININE FOR GFR 1.7 MG/DL (0.55-1.30); GLOMERULAR FILTRATION RATE 32.9 (>51); POTASSIUM SERUM 3.9 MEQ/L (3.5-5.1)
== END ==
LOC: M EKG 09:27
PROVIDERS: ATTEND Podiatrist
DX: M20.12 Hallux valgus (acquired), left foot (principal); M20.42 Other hammer toe(s) (acquired), left foot; M79.672 Pain in left foot

== ENCOUNTER → 2021-06-17 | Outpatient (CLI) | payer OTHER ==
[~2021-06-17] MED LIST changes: -AMLO1TAB25; +AMLO1TAB25 PO; +BUPR300T92 PO; -LEXA1TAB2; +LEXA1TAB2 PO; -METO1TAB32; +METO1TAB32 PO; +OMEP1CAP73 PO; +OXYB-54 PO; +PHEN30CA21 PO
== END ==
LOC: M WHC 07:53
PROVIDERS: ATTEND Physician Assistant Medical
DX: Z12.31 Encounter for screening mammogram for malignant neoplasm of breast (principal); Z78.0 Asymptomatic menopausal state; Z86.018 Personal history of other benign neoplasm

== ENCOUNTER 2021-06-19 06:08 | Day surgery (SDC) | payer OTHER ==
[~2021-06-19] VITALS: Ht 162.6 cm; Wt 111.6 kg
[~2021-06-19 06:08] MED LIST changes: +LR 1,000 ML IV ONE; +ceFAZolin SOD 2 GM in IV 1 EA IV ONE
[2021-06-19] MEDS ORDERED: BUPIVACAINE HCL 0.5% 30ML VIAL As Ordered ONE (07:08)
[2021-06-19] MEDS ORDERED: NEOSPORIN GU IRRIG 20 ML VIAL As Ordered ONE (07:08)
[2021-06-19] MEDS ORDERED: GENTAMICIN SULF 80MG/2ML VIAL As Ordered ONE (07:08)
[2021-06-19] MEDS ORDERED: dexameTHASONE 4 MG/ML 1ML VIAL (J1100 PER 1MG) As Ordered ONE (07:08)
[2021-06-19] MEDS ORDERED: LIDOCAINE 2% MDV 20ML VIAL As Ordered ONE (07:08)
[2021-06-19] MEDS ORDERED: LIDOCAINE 2% 100MG/5ML SDV (FOR ANES.) As Ordered ONE (08:01)
[2021-06-19] MEDS ORDERED: MIDAZOLAM INJ 2MG/2ML VIAL (J2250 PER 1MG) As Ordered ONE (08:01)
[2021-06-19] MEDS ORDERED: ACETAMINOPHEN 1000MG 100ML IV BTL (OFIRMEV) (J0131 PER 10MG) As Ordered ONE (08:01)
[2021-06-19] MEDS ORDERED: GLYCOPYRROLATE INJ 0.2 MG/ML 2 ML VIAL As Ordered ONE (08:01)
[2021-06-19] MEDS ORDERED: ONDANSETRON 4MG/2ML VIAL As Ordered ONE (08:01)
[2021-06-19] MEDS ORDERED: KETAMINE HCL 200 MG/20 ML VIAL As Ordered ONE (08:01)
[2021-06-19] MEDS ORDERED: propofoL 200 MG/20 ML VIAL As Ordered ONE ×2 (08:01→08:34)
[2021-06-19] MEDS ORDERED: fentaNYL 100 MCG/2 ML INJECTION As Ordered ONE (08:01)
[2021-06-19 10:30] VITALS: BP 131/80
== END 2021-06-19 10:40 | disposition home or self-care (01) ==
LOC: M SDC 06:08
PROVIDERS: ATTEND Podiatrist
DX: M20.12 Hallux valgus (acquired), left foot (principal); M20.42 Other hammer toe(s) (acquired), left foot; M79.672 Pain in left foot; I12.9 Hypertensive chronic kidney disease with stage 1 through stage 4 chronic kidney disease, or unspecified chronic kidney disease; E78.5 Hyperlipidemia, unspecified; K21.9 Gastro-esophageal reflux disease without esophagitis; M19.90 Unspecified osteoarthritis, unspecified site; R32 Unspecified urinary incontinence; E66.01 Morbid (severe) obesity due to excess calories; Z68.41 Body mass index [BMI] 40.0-44.9, adult; M25.512 Pain in left shoulder; M25.562 Pain in left knee; F41.9 Anxiety disorder, unspecified; F32.89 Other specified depressive episodes; G47.00 Insomnia, unspecified; I49.3 Ventricular premature depolarization; M94.0 Chondrocostal junction syndrome [Tietze]; D55.9 Anemia due to enzyme disorder, unspecified; G43.909 Migraine, unspecified, not intractable, without status migrainosus; N18.30 Chronic kidney disease, stage 3 unspecified; Z79.899 Other long term (current) drug therapy
CPT/HCPCS: 28285; 28296; 73630; 88300; C1713; J0131; J0690; J1100; J1580; J2250; J2405; J3010

== ENCOUNTER → 2021-11-30 | Outpatient (REF) | payer OTHER ==
[~2021-11-30] MED LIST changes: -LR 1,000 ML IV ONE; -ceFAZolin SOD 2 GM in IV 1 EA IV ONE
== END ==
LOC: M LAB REF 11:58
PROVIDERS: ATTEND Physician Assistant Medical
DX: E83.39 Other disorders of phosphorus metabolism (principal)

== ENCOUNTER → 2021-12-03 | Outpatient (CLI) | payer OTHER | LOC: M WHC 12:41 | PROVIDERS: ATTEND Physician Assistant Medical | DX: R22.1 Localized swelling, mass and lump, neck (principal) ==

== ENCOUNTER → 2021-12-25 | Outpatient (CLI) | payer OTHER | LOC: M SOG 08:03 | PROVIDERS: ATTEND Orthopaedic Surgery | DX: M19.012 Primary osteoarthritis, left shoulder (principal) ==

== ENCOUNTER → 2022-01-14 | Outpatient (CLI) | payer OTHER | LOC: M SOG 07:58 | PROVIDERS: ATTEND Orthopaedic Surgery Adult Reconstructive Orthopaedic Surgery | DX: M16.0 Bilateral primary osteoarthritis of hip (principal); M17.0 Bilateral primary osteoarthritis of knee ==

== ENCOUNTER 2022-02-05 11:55 | Emergency (ER) | payer OTHER ==
[~2022-02-05] VITALS: Ht 162.6 cm; Wt 105.9 kg
[2022-02-05] MEDS ORDERED: ONDANSETRON 4MG 2ML VIAL IV ONE (18:30)
[2022-02-05] MEDS ORDERED: NS 1,000 ML IV ONE (18:30)
[2022-02-05] MEDS ORDERED: KETOROLAC 30 MG/ML 1ML VIAL IV ONE (18:30)
[2022-02-05 19:15] LABS: BASO # 0.1 10^3/uL (0.0-0.2); BASO % 0.9 % (0.0-1.0); EOS # 0.1 10^3/uL (0.0-0.5); EOS % 1.2 % (0.0-3.0); HEMATOCRIT 42.4 % (36.0-47.0); HEMOGLOBIN 14.2 g/dl (12.0-15.5); LYMPH # 2.5 10^3/uL (1.5-5.0); LYMPH % 27.9 % (24.0-44.0); MEAN CORPUSCULAR HEMOGLOBIN 30.3 pg (27.0-33.0); MEAN CORPUSCULAR HGB CONC 33.5 g/dl (32.0-36.5); MEAN CORPUSCULAR VOLUME 90.6 fl (80.0-96.0); MONO # 0.6 10^3/uL (0.0-0.8); MONO % 6.7 % (2.0-8.0); NEUTROPHILS # 5.6 10^3/uL (1.5-8.5); NEUTROPHILS % 62.9 % (36.0-66.0); PLATELET COUNT, AUTOMATED 281 10^3/uL (150-450); RED BLOOD COUNT 4.68 10^6/uL (4.00-5.40)
[2022-02-05 19:36] LABS: BILIRUBIN,DIRECT 0.1 MG/DL (<0.4)
[2022-02-05 19:45] LABS: ALBUMIN 3.6 G/DL (3.2-5.2); BILIRUBIN,TOTAL 0.5 MG/DL (0.3-1.2); CALCIUM LEVEL 9.1 MG/DL (8.5-10.1); CREATININE FOR GFR 1.48 MG/DL (0.55-1.30); GLOMERULAR FILTRATION RATE 38.6 (>51); TOTAL PROTEIN 6.6 G/DL (5.7-8.2)
[2022-02-05] MEDS ORDERED: PHENAZOPYRIDINE 100 MG TAB PO ONE (20:15)
[2022-02-05 20:43] VITALS: BP 167/79
== END 2022-02-05 20:47 | disposition home or self-care (01) ==
LOC: M ED 11:55
DX: R30.0 Dysuria (principal); R19.5 Other fecal abnormalities; R10.9 Unspecified abdominal pain; I12.9 Hypertensive chronic kidney disease with stage 1 through stage 4 chronic kidney disease, or unspecified chronic kidney disease; K44.9 Diaphragmatic hernia without obstruction or gangrene; M48.061 Spinal stenosis, lumbar region without neurogenic claudication; Z79.899 Other long term (current) drug therapy; Z79.51 Long term (current) use of inhaled steroids
CPT/HCPCS: 74176; 80048; 80076; 81002; 83690; 85025; 96361; 96374; 96375; 99284; J1885; J2405

== ENCOUNTER → 2022-02-05 | Outpatient (REF) | payer OTHER ==
[2022-02-05 14:52] LABS: APPEARANCE, URINE MANUAL CLEAR (CLEAR); COLOR, URINE MANUAL YELLOW (YELLOW)
[2022-02-05 14:58] LABS: BILIRUBIN, URINE MANUAL NEGATIVE (NEGATIVE); BLOOD URINE MANUAL NEGATIVE (NEGATIVE); GLUCOSE, URINE (UA) MANUAL NEGATIVE (NEGATIVE); KETONE, URINE MANUAL NEGATIVE (NEGATIVE); LEUKOCYTE ESTERASE, URINE MAN TRACE (NEGATIVE); NITRITE, URINE MANUAL NEGATIVE (NEGATIVE); PROTEIN, URINE MANUAL NEGATIVE (NEGATIVE); SPECIFIC GRAVITY,URINE MANUAL 1.025 (1.002-1.035); UROBILINOGEN, URINE MANUAL NORMAL (NORMAL)
[2022-02-05 15:25] LABS: BACTERIA, URINE MOD AMOUNT; HYALINE CAST, URINE NONE SEEN /lpf (0-1); RBC, URINE 0-1 /hpf (0-3); SQUAMOUS EPITHELIAL CELL URINE MOD AMOUNT /hpf (SMALL AMT)
== END ==
LOC: M SMT 13:04
PROVIDERS: ATTEND Physician Assistant
DX: R30.0 Dysuria (principal)

== ENCOUNTER → 2022-02-23 | Outpatient (REF) | payer OTHER | LOC: M SMT 15:06 | PROVIDERS: ATTEND Urology | DX: R31.0 Gross hematuria (principal) ==

== ENCOUNTER → 2022-03-10 | Outpatient (CLI) | payer OTHER ==
[~2022-03-10] MED LIST changes: +BUPIVACAINE HCL 0.5% 10ML VIAL ONE; +ISOVUE-300 61% 50ML VIAL ONE; +LIDOCAINE 1% MDV 20ML VIAL ONE; +methylPREDNISolone 80MG/ML SUSP 1ML VIAL ONE
== END ==
LOC: M PLAIMG 12:54
PROVIDERS: ATTEND Orthopaedic Surgery Adult Reconstructive Orthopaedic Surgery
DX: M16.12 Unilateral primary osteoarthritis, left hip (principal)
CPT/HCPCS: 20610; 76000; J1040

== ENCOUNTER → 2022-03-19 | Outpatient (REF) | payer OTHER ==
[~2022-03-19] MED LIST changes: -BUPIVACAINE HCL 0.5% 10ML VIAL ONE; -ISOVUE-300 61% 50ML VIAL ONE; -LIDOCAINE 1% MDV 20ML VIAL ONE; -methylPREDNISolone 80MG/ML SUSP 1ML VIAL ONE
[2022-03-19 17:52] LABS: CREATININE, URINE 163.2 MG/DL; MALB URINE SIEMENS < 3.0 MG/DL; MAU/CREAT RATIO 1.8 MCG/MG (0.0-30.0)
== END ==
LOC: M LAB REF 16:57
PROVIDERS: ATTEND Nurse Practitioner Family
DX: N18.32 Chronic kidney disease, stage 3b (principal)

== ENCOUNTER → 2022-03-24 | Outpatient (CLI) | payer OTHER ==
[~2022-03-24] MED LIST changes: +ISOVUE-300 61% 100ML VIAL As Ordered ONE; +LIDOCAINE 1% MDV 20ML VIAL As Ordered ONE; +PROHANCE 279.3MG/ML 5ML VIAL As Ordered ONE
== END ==
LOC: M RADPRO 06:48
PROVIDERS: ATTEND Orthopaedic Surgery
DX: M67.814 Other specified disorders of tendon, left shoulder (principal)
CPT/HCPCS: 23350; 73223; 77002; A9576

== ENCOUNTER → 2022-04-27 | Outpatient (CLI) | payer OTHER ==
[~2022-04-27] MED LIST changes: -ISOVUE-300 61% 100ML VIAL As Ordered ONE; -LIDOCAINE 1% MDV 20ML VIAL As Ordered ONE; -PROHANCE 279.3MG/ML 5ML VIAL As Ordered ONE
== END ==
LOC: M WUC 08:44
PROVIDERS: ATTEND Physician Assistant Medical
DX: R05.9 Cough, unspecified (principal)

== ENCOUNTER → 2022-04-29 | Outpatient (CLI) | payer OTHER | LOC: M WHC 07:06 | PROVIDERS: ATTEND Physician Assistant Medical | DX: Z12.31 Encounter for screening mammogram for malignant neoplasm of breast (principal) ==

== ENCOUNTER → 2022-05-28 | Outpatient (CLI) | payer OTHER ==
[~2022-05-28] MED LIST changes: +HYDR-3713 PO
== END ==
LOC: M LABSMTC 10:28
PROVIDERS: ATTEND Anesthesiology
DX: Z01.818 Encounter for other preprocedural examination (principal); Z20.822 Contact with and (suspected) exposure to COVID-19

== ENCOUNTER 2022-06-01 08:57 | Day surgery (SDC) | payer OTHER ==
[~2022-06-01] VITALS: Ht 162.6 cm; Wt 109.8 kg
[~2022-06-01 08:57] MED LIST changes: -HYDR-3713 PO; +TRANEXAMIC ACID INJection 1,000 MG in NS 100 ML IV ONE; +ceFAZolin SOD 2 GM in IV 1 EA IV ONE; +oxyCODONE 5MG TAB PO ONE
[2022-06-01] MEDS ORDERED: MIDAZOLAM INJ 2MG/2ML VIAL IV PRN (10:05)
[2022-06-01] MEDS ORDERED: LIDOCAINE 1% SDV 5ML VIAL PN ONE (10:05)
[2022-06-01] MEDS ORDERED: fentaNYL 100 MCG/2 ML INJECTION IV PRN (10:05)
[2022-06-01] MEDS ORDERED: ROPIvacaine 0.5% 30ML VIAL PN ONE (10:05)
[2022-06-01] MEDS ORDERED: LIDOCAINE 1% SDV 30ML VIAL As Ordered ONE (10:28)
[2022-06-01] MEDS ORDERED: EPINEPHrine 1MG/ML INJ 30ML MD-VIAL As Ordered ONE (10:29)
[2022-06-01] MEDS ORDERED: ACETAMINOPHEN 1000MG 100ML IV BAG As Ordered ONE (10:30)
[2022-06-01] MEDS ORDERED: propofoL 200 MG/20 ML VIAL As Ordered ONE (10:30)
[2022-06-01] MEDS ORDERED: LIDOCAINE 2% 100MG/5ML SDV (FOR ANES.) As Ordered ONE (10:30)
[2022-06-01] MEDS ORDERED: SUGAMMADEX SODIUM 500 MG/5 ML VIAL (BRIDION) As Ordered ONE (10:30)
[2022-06-01] MEDS ORDERED: KETOROLAC 60MG 2ML VIAL As Ordered ONE (10:30)
[2022-06-01] MEDS ORDERED: ONDANSETRON 4MG 2ML VIAL As Ordered ONE (10:30)
[2022-06-01] MEDS ORDERED: ROCURONIUM BROMIDE 50MG/5ML VIAL As Ordered ONE ×2 (10:30→12:10)
[2022-06-01] MEDS ORDERED: TRANEXAMIC ACID 100 MG/ML 10ML VIAL As Ordered ONE (12:23)
[2022-06-01] MEDS ORDERED: HYDROmorphone HCL 2MG/ML 1ML VIAL As Ordered ONE (13:01)
[2022-06-01] MEDS ORDERED: HYDR-3713 PO (14:13)
[2022-06-01 16:15] VITALS: BP 135/74
== END 2022-06-01 16:24 | disposition home or self-care (01) ==
LOC: M SDC 08:57
PROVIDERS: ATTEND Orthopaedic Surgery
DX: M75.112 Incomplete rotator cuff tear or rupture of left shoulder, not specified as traumatic (principal); M19.012 Primary osteoarthritis, left shoulder; S46.212A Strain of muscle, fascia and tendon of other parts of biceps, left arm, initial encounter; S43.492A Other sprain of left shoulder joint, initial encounter; X58.XXXA Exposure to other specified factors, initial encounter; Y92.89 Other specified places as the place of occurrence of the external cause; I12.9 Hypertensive chronic kidney disease with stage 1 through stage 4 chronic kidney disease, or unspecified chronic kidney disease; N18.30 Chronic kidney disease, stage 3 unspecified; G43.909 Migraine, unspecified, not intractable, without status migrainosus; F32.A Depression, unspecified; F41.9 Anxiety disorder, unspecified; Z79.899 Other long term (current) drug therapy
CPT/HCPCS: 29824; 29826; 29827; 64415; C1713; J0131; J0171; J0690; J1100; J1170; J1885; J2250; J2405; J3010

== ENCOUNTER → 2022-08-04 | Outpatient (CLI) | payer OTHER ==
[~2022-08-04] MED LIST changes: +HYDR-3713 PO; -ORPH100T PO; +ORPH1TAB6 PO; -TRANEXAMIC ACID INJection 1,000 MG in NS 100 ML IV ONE; -ceFAZolin SOD 2 GM in IV 1 EA IV ONE; -oxyCODONE 5MG TAB PO ONE
== END ==
LOC: M WUC 10:36
PROVIDERS: ATTEND Physician Assistant Medical
DX: R05.9 Cough, unspecified (principal)

== ENCOUNTER → 2022-08-31 | Outpatient (REF) | payer OTHER | LOC: M SMT 17:07 | PROVIDERS: ATTEND Urology | DX: Z87.898 Personal history of other specified conditions (principal) ==

== ENCOUNTER → 2022-09-22 | Outpatient (REF) | payer OTHER ==
[2022-09-22 22:32] LABS: RHEUMATOID FACTOR QUANT < 3.5 IU/ML (<14)
== END ==
LOC: M LAB REF 21:45
PROVIDERS: ATTEND Physician Assistant Medical
DX: M79.10 Myalgia, unspecified site (principal); R53.83 Other fatigue

== ENCOUNTER → 2022-09-30 | Outpatient (REF) | payer OTHER ==
[2022-09-30 18:17] LABS: APPEARANCE, URINE CLEAR (CLEAR); BACTERIA, URINE AUTO NEGATIVE (NEGATIVE); BILIRUBIN, URINE AUTO NEGATIVE (NEGATIVE); BLOOD, URINE BLOOD NEGATIVE (NEGATIVE); COLOR, URINE STRAW (YELLOW); GLUCOSE, URINE (UA) AUTO NEGATIVE (NEGATIVE); KETONE, URINE AUTO NEGATIVE (NEGATIVE); LEUKOCYTE ESTERASE, URINE AUTO NEGATIVE (NEGATIVE); MUCUS, URINE SMALL (NEGATIVE); NITRITE, URINE AUTO NEGATIVE (NEGATIVE); PROTEIN, URINE AUTO NEGATIVE (NEGATIVE); RBC, URINE AUTO 0 /HPF (0-3); SPECIFIC GRAVITY URINE AUTO 1.005 (1.002-1.035); SQUAMOUS EPITHELIAL CELL UR AU 1 /HPF (0-6); UROBILINOGEN, URINE AUTO 0.2 mg/dL (0.0-2.0); WBC, URINE AUTO 1 /HPF (0-3)
== END ==
LOC: M SMT 16:53
PROVIDERS: ATTEND Specialist
DX: N39.41 Urge incontinence (principal)

== ENCOUNTER → 2022-11-06 | Outpatient (REF) | payer OTHER | LOC: M LAB REF 11:51 | PROVIDERS: ATTEND Physician Assistant | DX: N10 Acute pyelonephritis (principal) ==

== ENCOUNTER → 2022-11-09 | Outpatient (REF) | payer OTHER | LOC: M LAB REF 11:49 | PROVIDERS: ATTEND Nurse Practitioner Family | DX: N10 Acute pyelonephritis (principal) ==

== ENCOUNTER → 2022-11-11 | Outpatient (REF) | payer OTHER | LOC: M LAB REF 17:23 | PROVIDERS: ATTEND Nurse Practitioner Family | DX: N39.0 Urinary tract infection, site not specified (principal) ==

== ENCOUNTER → 2022-11-15 | Outpatient (CLI) | payer OTHER | LOC: M WUC 12:07 | PROVIDERS: ATTEND Physician Assistant Medical | DX: M51.34 Other intervertebral disc degeneration, thoracic region (principal) ==

== ENCOUNTER → 2022-11-17 | Outpatient (CLI) | payer OTHER | LOC: M PLAIMG 08:43 | PROVIDERS: ATTEND Nurse Practitioner Family | DX: N20.0 Calculus of kidney (principal) ==

== ENCOUNTER → 2023-03-30 | Outpatient (CLI) | payer OTHER | LOC: M RAD 06:51 | PROVIDERS: ATTEND Physician Assistant Medical | DX: M54.2 Cervicalgia (principal) ==

== ENCOUNTER → 2023-07-04 | Outpatient (REF) | payer OTHER ==
[2023-07-04 18:27] LABS: FOLATE 20.7 NG/ML (>5.4); RHEUMATOID FACTOR QUANT 4.2 IU/ML (<14)
== END ==
LOC: M LAB REF 16:38
PROVIDERS: ATTEND Internal Medicine
DX: G62.9 Polyneuropathy, unspecified (principal)

== ENCOUNTER → 2023-07-08 | Outpatient (CLI) | payer OTHER ==
[~2023-07-08] MED LIST changes: +BUPR-597 PO; -BUPR300T92 PO
== END ==
LOC: M WHC 09:19
PROVIDERS: ATTEND Specialist
DX: Z12.31 Encounter for screening mammogram for malignant neoplasm of breast (principal)

== ENCOUNTER → 2023-11-30 | Outpatient (REF) | payer OTHER ==
[2023-11-30 13:23] LABS: APPEARANCE, URINE HAZY (CLEAR); BACTERIA, URINE AUTO NEGATIVE (NEGATIVE); BILIRUBIN, URINE AUTO NEGATIVE (NEGATIVE); BLOOD, URINE BLOOD NEGATIVE (NEGATIVE); COLOR, URINE YELLOW (YELLOW); GLUCOSE, URINE (UA) AUTO NEGATIVE (NEGATIVE); KETONE, URINE AUTO NEGATIVE (NEGATIVE); LEUKOCYTE ESTERASE, URINE AUTO NEGATIVE (NEGATIVE); MUCUS, URINE SMALL (NEGATIVE); NITRITE, URINE AUTO NEGATIVE (NEGATIVE); PROTEIN, URINE AUTO NEGATIVE (NEGATIVE); RBC, URINE AUTO 0 /HPF (0-3); SPECIFIC GRAVITY URINE AUTO 1.016 (1.002-1.035); SQUAMOUS EPITHELIAL CELL UR AU 6 /HPF (0-6); UROBILINOGEN, URINE AUTO 0.2 mg/dL (0.0-2.0); WBC, URINE AUTO 3 /HPF (0-3)
== END ==
LOC: M SMT 12:39
PROVIDERS: ATTEND Specialist
DX: N32.81 Overactive bladder (principal)

== ENCOUNTER 2024-03-23 07:34 | Emergency (ER) | payer OTHER ==
[~2024-03-23] VITALS: Ht 162.6 cm; Wt 112.3 kg
[2024-03-23] MEDS ORDERED: LISI10TA22 PO (07:51)
[2024-03-23] MEDS ORDERED: MIRA50TA2 (07:51)
[2024-03-23 09:12] LABS: KETONE, URINE AUTO RFX NEGATIVE (NEGATIVE); LEUKOCYTE ESTERASE UR AUTO RFX NEGATIVE (NEGATIVE); MUCUS, URINE RFX SMALL (NEGATIVE); NITRITE, URINE AUTO RFX NEGATIVE (NEGATIVE); RBC, URINE AUTO RFX 0 /HPF (0-3); SQUAM EPITHELIAL CELL UR AURFX 3 /HPF (0-6); WBC, URINE AUTO RFX 1 /HPF (0-3)
[2024-03-23 09:13] LABS: BASO # 0.1 10^3/uL (0.0-0.2); BASO % 0.8 % (0.0-1.0); EOS # 0.1 10^3/uL (0.0-0.5); HEMOGLOBIN 14.2 g/dl (12.0-15.5); LYMPH # 1.3 10^3/uL (1.5-5.0); LYMPH % 18.3 % (24.0-44.0); MEAN CORPUSCULAR HEMOGLOBIN 30.7 pg (27.0-33.0); MEAN CORPUSCULAR HGB CONC 33.8 g/dl (32.0-36.5); MEAN CORPUSCULAR VOLUME 90.9 fl (80.0-96.0); MONO # 0.5 10^3/uL (0.0-0.8); MONO % 6.1 % (2.0-8.0); NEUTROPHILS # 5.4 10^3/uL (1.5-8.5); NEUTROPHILS % 73.4 % (36.0-66.0); PLATELET COUNT, AUTOMATED 282 10^3/uL (150-450); RED BLOOD COUNT 4.62 10^6/uL (4.00-5.40); WHITE BLOOD COUNT 7.3 10^3/uL (4.0-10.0)
[2024-03-23] MEDS: ONDANSETRON 4MG 2ML VIAL IV ONE (09:41)
[2024-03-23] MEDS: ACETAMINOPHEN *IV* 1,000 MG in IV 1 EA IV ONE (09:44)
[2024-03-23 09:46] LABS: ALBUMIN 3.4 G/DL (3.2-5.2); BILIRUBIN,DIRECT 0.2 MG/DL (<0.4); BILIRUBIN,TOTAL 0.5 MG/DL (0.3-1.2); TOTAL PROTEIN 6.7 G/DL (5.7-8.2)
[2024-03-23 10:22] VITALS: TEMP 98.1
[2024-03-23] MEDS ORDERED: ONDA-282 PO (12:20)
[2024-03-23 12:32] VITALS: BP 128/67; O2SAT 99
== END 2024-03-23 12:33 | disposition home or self-care (01) ==
LOC: M ED 07:34
DX: R11.0 Nausea (principal); N18.30 Chronic kidney disease, stage 3 unspecified; F41.9 Anxiety disorder, unspecified; F32.A Depression, unspecified; Z79.51 Long term (current) use of inhaled steroids; Z79.899 Other long term (current) drug therapy
CPT/HCPCS: 74176; 80047; 80076; 81001; 83690; 85025; 93041; 96374; 96375; 99284; J0131; J2405

== ENCOUNTER 2024-10-01 07:36 | Emergency (ER) | payer OTHER ==
[~2024-10-01] VITALS: Ht 162.6 cm; Wt 112.6 kg
[~2024-10-01 07:36] MED LIST changes: -HOLTER MONITOR XX; -LISI20TA33 PO
[2024-10-01] MEDS ORDERED: LISI20TA33 PO (07:56)
[2024-10-01 08:27] LABS: BASO # 0.1 10^3/uL (0.0-0.2); BASO % 0.8 % (0.0-1.0); EOS # 0.1 10^3/uL (0.0-0.5); EOS % 0.9 % (0.0-3.0); LYMPH # 1.2 10^3/uL (1.5-5.0); LYMPH % 13.5 % (24.0-44.0); MONO # 0.5 10^3/uL (0.0-0.8); MONO % 5.8 % (2.0-8.0); NEUTROPHILS # 6.8 10^3/uL (1.5-8.5); NEUTROPHILS % 78.5 % (36.0-66.0); PLATELET COUNT, AUTOMATED 283 10^3/uL (150-450)
[2024-10-01] MEDS ORDERED: ONDA-282 PO (08:34)
[2024-10-01] MEDS ORDERED: HOME MED LIST COMPLETE! XX SCH (08:35)
[2024-10-01 08:38] LABS: INR 0.95
[2024-10-01] MEDS ORDERED: HOLTER MONITOR XX (08:59)
[2024-10-01 09:00] LABS: ALT/SGPT 18.0 U/L (7.0-40); AST/SGOT 18.0 U/L (<34); CALCIUM LEVEL 8.8 MG/DL (8.3-10.6); CARBON DIOXIDE LEVEL 25.0 MMOL/L (20-31); CHLORIDE LEVEL 107.0 MMOL/L (98-107); CREATININE FOR GFR 1.56 MG/DL (0.55-1.30); GLOMERULAR FILTRATION RATE 37.6 (>45); MAGNESIUM LEVEL 2.2 MG/DL (1.8-2.4); POTASSIUM SERUM 3.9 MMOL/L (3.5-5.1); SODIUM LEVEL 143.0 MMOL/L (136-145)
[2024-10-01 09:02] LABS: FREE T4 0.9 NG/DL (0.89-1.76)
[2024-10-01] MEDS: ONDANSETRON 4MG 2ML VIAL IV ONE (09:10)
[2024-10-01 10:35] VITALS: BP 101/62; O2SAT 97
[2024-10-01 10:43] VITALS: TEMP 97.3
== END 2024-10-01 10:45 | disposition home or self-care (01) ==
LOC: M ED 07:36
DX: R00.2 Palpitations (principal); I10 Essential (primary) hypertension; F43.10 Post-traumatic stress disorder, unspecified; Z79.51 Long term (current) use of inhaled steroids; Z79.899 Other long term (current) drug therapy
CPT/HCPCS: 71045; 80048; 80076; 83735; 84439; 84443; 85025; 85610; 93005; 93041; 94760; 96374; 99285; J2405

== ENCOUNTER → 2024-10-01 | Outpatient (CLI) | payer OTHER ==
[~2024-10-01] MED LIST changes: -BUPR-597 PO; +BUPR-766 PO; +HOLTER MONITOR XX; +LISI10TA22 PO; +LISI20TA33 PO; +MIRA50TA2 PO; +ONDA-282 PO; +TOPI-257 PO; -TOPI100T9 PO
== END ==
LOC: M EKG 11:16
PROVIDERS: ATTEND Emergency Medicine
DX: R00.2 Palpitations (principal)

== ENCOUNTER → 2024-10-31 | Outpatient (REF) | payer OTHER ==
[~2024-10-31] MED LIST changes: +HOLTER MONITOR XX; +LISI20TA33 PO
[2024-10-31 12:49] LABS: PHOSPHORUS LEVEL 2.6 MG/DL (2.4-5.1); PTH INTACT 88.5 PG/ML (18.5-88.0)
== END ==
LOC: M LAB REF 12:03
PROVIDERS: ATTEND Physician Assistant Medical
DX: N18.30 Chronic kidney disease, stage 3 unspecified (principal)

== ENCOUNTER → 2024-11-15 | Outpatient (CLI) | payer OTHER | LOC: M RAD 10:28 | PROVIDERS: ATTEND Physician Assistant Medical | DX: M79.602 Pain in left arm (principal); W19.XXXA Unspecified fall, initial encounter ==